=== PATIENT | female | born 1970 | race Caucasian/White ===

== ENCOUNTER 2018-10-07 08:00 | Day surgery (SDC) | payer BC, OTHER ==
[~2018-10-07 08:00] MED LIST: PROPOFOL INJ 200 MG/20 ML VIAL IV ONE
[2018-10-07 10:29] VITALS: BP 113/69
--- NOTE | 2018-10-07 11:49 | Operative Report ---
Operative Report DATE OF SURGERY: 10/07/18 Operative Report: The risks, benefits and alternatives of the procedure including risk of bleeding, perforation requiring surgery have been explained to the patient in detail and informed consent has been obtained. The patient is brought back to the endoscopy suite and placed in a left, lateral decubital position. Timeout was called. Propofol medication is administered. Rectal examination is done which did not reveal any masses, tears or fissures. An Olympus videoscope was introduced into the patient's rectum. The scope was then carefully advanced all the way to the cecum. Cecum was identified by the usual anatomical landmarks including the ileocecal valve as well as the appendiceal office. Photodocumentation is obtained. The scope was then sequentially pulled back via the various segments of the colon including the ascending colon, hepatic flexure, transverse colon, splenic flexure, descending colon and finally into the rectosigmoid portions of the colon. Retroflexion maneuver is performed. PREOPERATIVE DIAGNOSIS: Colorectal cancer screening. Family history of colon cancer POSTOPERATIVE DIAGNOSIS: Sessile colon polyp attempted snare polypectomy but tissue was ablated in situ no tissue retrieved. Diverticulosis without any evidence of diverticulitis. Internal hemorrhoids OPERATION: Colonoscopy with snare polypectomy SURGEON: EFRAIN PULIDO ANESTHESIA: LMAC TISSUE REMOVED OR ALTERED: As noted above. COMPLICATIONS: None. ESTIMATED BLOOD LOSS: None. INTRAOPERATIVE FINDINGS: As noted above. PROCEDURE: Patient tolerated the procedure well. No immediate postprocedure comp occasions are noted. Patient is discharged in good condition. Discharge date 10/07/2018. Discharge diet: Regular. Discharge activity: Regular. 2 to 3-week follow-up to discuss findings. Patient is instructed call the office or proceed to the emergency room should there be any further proximal questions. 5-year surveillance colonoscopy.
== END 2018-10-07 10:20 | disposition home or self-care (01) ==
LOC: END 08:00
PROVIDERS: ATTEND Internal Medicine Gastroenterology
DX: Z12.11 Encounter for screening for malignant neoplasm of colon (principal); D12.6 Benign neoplasm of colon, unspecified; K57.30 Diverticulosis of large intestine without perforation or abscess without bleeding; K64.8 Other hemorrhoids; Z80.0 Family history of malignant neoplasm of digestive organs
CPT/HCPCS: 45385; J2704; 811